=== PATIENT | male | born 1935 | race Caucasian/White ===

== ENCOUNTER 2016-06-21 22:33 | Inpatient (IN) | payer MEDICARE ==
[~2016-06-21] VITALS: Ht 180.3 cm; Wt 91.8 kg
[~2016-06-21 22:33] MED LIST: ASAC800T PO; ASPI1TAB69 PO; BECL80AE NASAL; CALC600T10 PO; FOLI1CAP7 PO; LOSA50TA PO; MEDR4TAB PO; MULTTAB67 PO; PROT40TA PO; SYMB80AE INH
[2016-06-21 22:44] VITALS: BP 177/75; PULSE 116; RESP 22; TEMP 101; O2SAT 87
[2016-06-21] MEDS ORDERED: VANCOMYCIN INJ 1,000 MG in SODIUM CHLOR 0.9% 250 ML INJ 250 ML IV ONE (23:00)
[2016-06-21] MEDS ORDERED: RESP: ALBUTEROL 2.5 MG/IPRATROPIUM 0.5 MG NEB (SCH) INH ONE (23:00)
[2016-06-21] MEDS ORDERED: SODIUM CHLOR 0.9% 1000 ML INJ 1,000 ML IV ONE (23:00)
[2016-06-21] MEDS ORDERED: AZTREONAM INJ 1,000 MG in SODIUM CHLORIDE 0.9% INJ 100 ML IV ONE (23:00)
[2016-06-21 23:03] VITALS: O2SAT 92
--- NOTE | 2016-06-21 23:03 | PD ---
HPI Chief Complaint: General Weakness Time Seen by Provider: 22:53 Travel History International Travel<30 days: No Contact w/Intl Traveler<30days: No Traveled to known affect area: No History of Present Illness HPI 81-year-old male complains generalized malaise and weakness and nausea vomiting. Patient states that the symptoms started this morning. Patient was seen by personal physician this morning and found to have elevated blood sugar. Patient denies any history of diabetes. Patient has history of COPD and hypertension. EMS was called to the scene. Patient's O2 saturation was found to be 87% at room air. Patient was given O2 4 L make an cannula. Patient was given IV fluid [address] to the ED. Temperature was 101 at the scene. Patient complains of urinary incontinence. Patient denies any headache. Patient denies any visual change. Patient denies any neck pain. Patient denies any chest pain or shortness of breath. Patient denies abdominal pain. Patient states that he started having nausea vomiting this evening. Patient denies any focal weakness or numbness of extremity. PFSH Past Medical History Cancer: No Cardiovascular Problems: No Diabetes: No Endocrine: No Gastrointestinal Disorders: Yes (GERD) Genitourinary: No Hepatitis: No Hiatal Hernia: Yes Hypertension: Yes Immune Disorder: No Medical other: No Musculoskeletal: Yes (ARTHRITIS) Neurologic: No Psychiatric: No Respiratory: No Thyroid Disease: No Influenza Vaccination: Yes Past Surgical History Abdominal Surgery: Yes (LEFT ING. HERNIA REP.) AICD: No Body Medical Devices: WIRE RIGHT KNEE Eye Surgery: Yes (STRABISMUS REP., LEFT CATARACT EXTRACT.) Genitourinary Surgery: Yes (TURP) Joint Replacement: No Oral Surgery: Yes (TONSILLECTOMY) Pacemaker: No Other Surgery: Yes Social History Alcohol Use: Yes (OCCA.) Tobacco Use: No Substance Use: No Allergies-Medications (Allergen,Severity, Reaction): Coded Allergies: Augmentin (Verified Allergy, Severe, Diarrhea, 06/21/16) Reported Meds & Prescriptions Reported Meds & Active Scripts Active Reported Calcium + D3 (Calcium Carbonate-Cholecalciferol) 600-200 Mg-Unit Tab 1 Tab PO DAILY Multiple Vitamin 1 Tab 1 Tab PO DAILY Asacol HD (Mesalamine) 800 Mg Tab 800 Mg PO TID Swallow whole. Take on an empty stomach. Losartan (Losartan Potassium) 50 Mg Tab 50 Mg PO DAILY Aspirin 81 Mg Tabdr 81 Mg PO DAILY Medrol (Methylprednisolone) 4 Mg Tab 4 Mg PO MON, SUN, SUN Protonix (Pantoprazole Sodium) 40 Mg Tab 40 Mg PO DAILY Symbicort Inh (Budesonide/Formoterol Fumarate) 80-4.5 Mcg/Act Aero 2 Puff INH DAILY Qnasl Nasal (Beclomethasone Nasal) 80 Mcg/Act Aero 2 [place] NASAL DAILY To each nostril. Folic Acid 800 Mcg Cap 800 Mcg PO DAILY Review of Systems General / Constitutional: No: Fever Eyes: No: Visual changes HENT: No: Headaches Cardiovascular: No: Chest Pain or Discomfort Respiratory: Positive: Shortness of Breath Gastrointestinal: Positive: Nausea, Vomiting, No: Abdominal Pain Genitourinary: No: Dysuria Musculoskeletal: No: Pain Skin: No Rash Neurologic: No: Weakness Psychiatric: No: Depression Endocrine: No: Polydipsia Hematologic/Lymphatic: No: Easy Bruising Physical Exam Narrative GENERAL: Well-nourished, well-developed patient. SKIN: Focused skin assessment warm/dry. HEAD: Normocephalic. EYES: No scleral icterus. No injection or drainage. NECK: Supple, trachea midline. No JVD or lymphadenopathy. CARDIOVASCULAR: Regular rate and rhythm without murmurs, gallops, or rubs. RESPIRATORY: Breath sounds equal bilaterally. No accessory muscle use. GASTROINTESTINAL: Abdomen soft, non-tender, nondistended. MUSCULOSKELETAL: No cyanosis, or edema. BACK: Nontender without obvious deformity. No CVA tenderness. Neurologic exam: Patient is awake and alert oriented 3. No obvious focal neurological deficit. Data Data Last Documented VS Vital Signs Date Time Temp Pulse Resp B/P Pulse Ox O2 Delivery O2 Flow Rate FiO2 06/21/16 23:39 93 Nasal Cannula 5.00 06/21/16 22:44 101.0 116 22 177/75 Orders Lactic Acid Sepsis Protocol (06/21/16 22:49) Complete Blood Count With Diff (06/21/16 22:54) Comprehensive Metabolic Panel (06/21/16 22:54) Creatine Kinase (Cpk) (06/21/16 22:54) Troponin I (06/21/16 22:54) B-Type Natriuretic Peptide (06/21/16 22:54) Prothrombin Time / Inr (Pt) (06/21/16 22:54) Act Partial Throm Time (Ptt) (06/21/16 22:54) Blood Culture (06/21/16 22:54) Urinalysis - C+S If Indicated (06/21/16 22:54) D-Dimer (06/21/16 22:54) Thyroid Stimulating Hormone (06/21/16 22:54) Chest, Single Ap (06/21/16 22:54) Iv Access Insert/Monitor (06/21/16 22:54) Ecg Monitoring (06/21/16 22:54) Oximetry (06/21/16 22:54) Sodium Chlor 0.9% 1000 Ml Inj (Ns 1000 M (06/21/16 23:00) Aztreonam Inj (Azactam Inj) (06/21/16 23:00) Vancomycin Inj (Vancomycin Inj) (06/21/16 23:00) Albuterol-Ipratropium Neb (Duoneb Neb) (06/21/16 23:00) Arterial Blood Gas (Abg) (06/21/16 ) Influenzae A/B Antigen (06/21/16 23:04) Labs Laboratory Tests Test 06/21/16 06/21/16 06/21/16 22:48 23:00 23:46 Lactic Acid Level 2.1 mmol/L White Blood Count 22.7 TH/MM3 Red Blood Count 4.70 MIL/MM3 Hemoglobin 13.8 GM/DL Hematocrit 41.7 % Mean Corpuscular Volume 88.8 FL Mean Corpuscular Hemoglobin 29.4 PG Mean Corpuscular Hemoglobin 33.1 % Concent Red Cell Distribution Width 14.2 % Platelet Count 228 TH/MM3 Mean Platelet Volume 7.5 FL Neutrophils (%) (Auto) 93.3 % Lymphocytes (%) (Auto) 3.8 % Monocytes (%) (Auto) 2.6 % Eosinophils (%) (Auto) 0.0 % Basophils (%) (Auto) 0.3 % Neutrophils # (Auto) 21.1 TH/MM3 Lymphocytes # (Auto) 0.9 TH/MM3 Monocytes # (Auto) 0.6 TH/MM3 Eosinophils # (Auto) 0.0 TH/MM3 Basophils # (Auto) 0.1 TH/MM3 CBC Comment DIFF FINAL Differential Comment Prothrombin Time 12.9 SEC Prothromb Time International 1.2 RATIO Ratio Activated Partial 24.1 SEC Thromboplast Time D-Dimer Quantitative (PE/DVT) 1.50 MG/L FEU Urine Color LIGHT-YELLOW Urine Turbidity CLEAR Urine pH 6.0 Urine Specific [place] 1.011 Urine Protein NEG mg/dL Urine Glucose (UA) NEG mg/dL Urine Ketones 10 mg/dL Urine Occult Blood SMALL Urine Nitrite NEG Urine Bilirubin NEG Urine Urobilinogen LESS THAN 2.0 MG/DL Urine Leukocyte Esterase NEG Urine RBC 3 /hpf Urine WBC LESS THAN 1 /hpf Urine Squamous Epithelial <1 /hpf Cells Urine Mucus FEW /lpf Microscopic Urinalysis Comment CULT NOT INDICATED Sodium Level 137 MEQ/L Potassium Level 3.6 MEQ/L Chloride Level 105 MEQ/L Carbon Dioxide Level 20.9 MEQ/L Anion Gap 11 MEQ/L Blood Urea Nitrogen 13 MG/DL Creatinine 1.09 MG/DL Estimat Glomerular Filtration 65 ML/MIN Rate Random Glucose 152 MG/DL Calcium Level 7.9 MG/DL Total Bilirubin 0.7 MG/DL Aspartate Amino Transf 28 U/L (AST/SGOT) Alanine Aminotransferase 30 U/L (ALT/SGPT) Alkaline Phosphatase 144 U/L Total Creatine Kinase 119 U/L Troponin I LESS THAN 0.02 NG/ML B-Type Natriuretic Peptide 39 PG/ML Total Protein 7.0 GM/DL Albumin 3.1 GM/DL Thyroid Stimulating Hormone 0.737 uIU/ML 3rd Gen Blood Gas Puncture Site RT RADIAL Blood Gas Patient Temperature 98.6 Blood Gas HCO3 20 mmol/L Blood Gas Base Excess -3.7 mmol/L Blood Gas Oxygen Saturation 91 % Arterial Blood pH 7.45 Arterial Blood Partial 29 mmHg Pressure CO2 Arterial Blood Partial 67 mmHG Pressure O2 Arterial Blood Oxygen Content 18.1 Vol % Arterial Blood 1.1 % Carboxyhemoglobin Arterial Blood Methemoglobin 0.9 % Blood Gas Hemoglobin 14.2 G/DL Oxygen Delivery Device NASAL CANNULA Blood Gas Liter Flow 5 L/M MDM Medical Decision Making Medical Screen Exam Complete: Yes Emergency Medical Condition: Yes Interpretation(s) 23:03 PM. EKG shows sinus tachycardia rate 116. Nonspecific ST-T wave change. 23:45 PM. Last Impressions Chest X-Ray 06/21/16 1499 Signed Impressions: Service Date/Time: Tuesday, June 21, 2016 22:56 - CONCLUSION: A 4.3 cm density overlying the left hilum. Round pneumonia versus left hilar mass, possibly malignant. Contrasted chest CT recommended on an outpatient basis. Darron A. Sevigny, MD 23:46 PM. CBC WBC 22.7. 93 neutrophil. Bicarbonate 20.9. Lactic acid 2.1. Calcium 7.9. INR 1.2. D-dimer 1.5. UA negative. 12:03 AM. Cardiac enzymes are normal. ABG pH 7.45. PCO2 28. PO2 66. Patient 's on 4 L make an cannula. Differential Diagnosis Differential diagnosis including sepsis, dehydration, electrolyte imbalance, TIA , CVA, NE, pneumonia, UTI. Narrative Course 81-year-old male complains of generalized malaise and weakness with nausea vomiting. Patient is febrile. Patient was given normal saline solution 1500 cc by EMS. Normal since solution 1 L IV bolus in the ED. Albuterol with Atrovent unit dose treatment times one. Vancomycin 1 g IV. Azactam 1 g IV. Diagnosis Primary Impression: Pneumonia Qualified Code: J18.1 - Pneumonia of left upper lobe due to infectious organism Additional Impression: Hypoxemia Admitting Information Admitting Physician Requests: Admit Herber Juan MD Jun 21, 2016 23:03
[2016-06-21 23:17] LABS: AUTOMATED NEUTROPHIL # 21.1 TH/MM3 (1.8-7.7); BASOPHIL # 0.1 TH/MM3 (0-0.2); BASOPHIL % 0.3 % (0.0-2.0); HEMATOCRIT 41.7 % (39.0-51.0); HEMO FLAGS DIFF FINAL; LYMPH % 3.8 % (9.0-44.0); LYMPHOCYTE # 0.9 TH/MM3 (1.0-4.8); MEAN CELL VOLUME 88.8 FL (80.0-100.0); MEAN CORPUSCULAR HEMOGLOBIN 29.4 PG (27.0-34.0); MEAN CORPUSCULAR HGB CONC 33.1 % (32.0-36.0); MONO % 2.6 % (0.0-8.0); NEUT % 93.3 % (16.0-70.0); PLATELET COUNT 228 TH/MM3 (150-450); RED CELL DISTRIBUTION WIDTH 14.2 % (11.6-17.2); WHITE BLOOD COUNT 22.7 TH/MM3 (4.0-11.0)
--- NOTE | 2016-06-21 23:19 | RADRPT ---
EXAM DATE/TIME: 06/21/2016 22:56 [facility] COMPARISON: No previous studies available for comparison. INDICATIONS : Shortness of breath. Weakness. MEDICAL HISTORY : Hypertension. SURGICAL HISTORY : None. ENCOUNTER: Initial ACUITY: 1 day PAIN SCORE: 0/10 LOCATION: Bilateral chest FINDINGS: A single view of the chest demonstrates a 4.3 cm rounded density overlying the left hilum. Chest CT w ith contrast recommended as an outpatient basis. could be a left hilar mass or rounded pneumonia.. T he cardiomediastinal contours are unremarkable. Osseous structures are intact. CONCLUSION: A 4.3 cm density overlying the left hilum. Round pneumonia versus left hilar mass, possibly malignant . Contrasted chest CT recommended on an outpatient basis. Darron Gunter MD on June 21, 2016 at 23:15 Board Certified Radiologist. This report was verified electronically.
[2016-06-21 23:24] LABS: BLOOD, URINE SMALL (NEG); COMMENT (UR) CULT NOT INDICATED; CULTURE IF INDICATED CULT NOT INDICATED; GLUCOSE,URINE NEG (NEG); KETONE, URINE 10 mg/dL (NEG); MUCUS URINE FEW /lpf (OCC); NITRITE,URINE NEG (NEG); SQUAMOUS EPITHELIAL CELL URINE <1 /hpf (0-5); URINE COLOR LIGHT-YELLOW (YELLW/STRAW)
[2016-06-21 23:32] LABS: APTT (PATIENT) 24.1 SEC (24.3-30.1); INTERNATIONAL NORMALIZED RATIO 1.2 RATIO; PROTHROMBIN TIME - PATIENT 12.9 SEC (9.8-11.6)
[2016-06-21 23:37] LABS: ALT (GPT) 30 U/L (12-78); ANION GAP 11 MEQ/L (5-15); AST (GOT) 28 U/L (15-37); BICARBONATE 20.9 MEQ/L (21.0-32.0); BLOOD UREA NITROGEN 13 MG/DL (7-18); CHLORIDE 105 MEQ/L (98-107); GLOMERULAR FILTRATION RATE 65 ML/MIN (>89); POTASSIUM 3.6 MEQ/L (3.5-5.1); SODIUM (NA) 137 MEQ/L (136-145)
[2016-06-21 23:39] VITALS: O2SAT 93
[2016-06-21 23:47] LABS: ALKALINE PHOSPHATASE 144 U/L (45-117); CREATINE KINASE 119 U/L (39-308); TOTAL BILIRUBIN ADULT 0.7 MG/DL (0.2-1.0)
[2016-06-22] VITALS (17 sets, daily range): BP systolic 107–133; BP diastolic 57–75; PULSE 83–106; RESP 20–28; TEMP 97.8–98.8; O2SAT 85–95
[2016-06-22 00:04] LABS: BLOOD GAS BASE EXCESS -3.7 mmol/L (-2-2); BLOOD GAS CARBOXYHEMOGLOBIN 1.1 % (0-4); BLOOD GAS HCO3 20 mmol/L (22-26); BLOOD GAS METHEMOGLOBIN 0.9 % (0-2); BLOOD GAS O2 HGB SATURATION 91 % (90-100); BLOOD GAS OXYGEN CONTENT 18.1 Vol % (12.0-20.0); BLOOD GAS PCO2 29 mmHg (38-42); BLOOD GAS PO2 67 mmHG (61-120); BLOOD GAS TOTAL HGB 14.2 G/DL (12.0-16.0); CRITICAL VALUE NO; LITER FLOW 5 L/M; OXYGEN DEVICE NASAL CANNULA; TEMP CORR TO 98.6
[2016-06-22 00:05] LABS: DRAW SITE RT RADIAL; NUMBER OF ARTERIAL PUNCTURES 1; STAT YES; ULNAR PULSE PRESENT
[2016-06-22] MEDS ORDERED: ONDANSETRON HCL 4 MG/2 ML VIAL IV PRN (00:30)
[2016-06-22] MEDS ORDERED: ACETAMINOPHEN 325 MG TAB PO PRN ×2 (00:30→04:00)
[2016-06-22] MEDS ORDERED: SODIUM CHLORIDE 0.9% FLUSH 10 ML FLUSH IVF PRN (00:30)
[2016-06-22 00:52] LABS: LACTIC ACID GHOST NOT REPORTABLE
[2016-06-22] MEDS ORDERED: KETOROLAC TROMETHAMINE 30 MG/ML (IVP) VIAL IV PUSH ONE (01:00)
[2016-06-22] MEDS ORDERED: IOHEXOL 350 MG/ML 10 ML VIAL (for RAD DIAG) IV ONE (01:44)
--- NOTE | 2016-06-22 02:02 | RADRPT ---
EXAM DATE/TIME: 06/22/2016 01:33 [facility] COMPARISON: No previous studies available for comparison. INDICATIONS : Left side chest pain and shortness of breath. Elevated D-Dimer. IV CONTRAST: 70 cc Omnipaque 350 (iohexol) IV RADIATION DOSE: 23.50 CTDIvol (mGy) MEDICAL HISTORY : Hypertension. Chronic obstructive pulmonary disease. Hernia, hiatal.Colitis. SURGICAL HISTORY : Tonsillectomy. Inguinal hernia repair. ENCOUNTER: Initial ACUITY: 1 day PAIN SCALE: 2/10 LOCATION: Bilateral chest TECHNIQUE: Volumetric scanning of the chest was performed using a pulmonary embolism protocol MIP images were re constructed. Using automated exposure control and adjustment of the mA and/or kV according to patien t size, radiation dose was kept as low as reasonably achievable to obtain optimal diagnostic quality images. FINDINGS: PULMONARY ARTERIES: No filling defects are seen in the pulmonary arteries through the segmental level. LUNGS: There is mild bibasilar atelectasis . There is no pneumothorax . No concerning pulmonary nodule is visualized. PLEURAE: There is no pleural thickening or pleural effusion. Extensive subpleural fatty deposition a sign of b enign disease MEDIASTINUM: There is good visualization of the great vessels of the middle mediastinum. No evidence of mediastin al or hilar adenopathy/mass. MUSCULOSKELETAL: Within normal limits for patient age. MISCELLANEOUS: The visualized upper abdominal organs demonstrate no acute abnormality. CONCLUSION: Normal examination except for extensive atelectasis both lung bases left greater than right. Darron Gunter MD on June 22, 2016 at 1:58 Board Certified Radiologist. This report was verified electronically.
[2016-06-22] MEDS ORDERED: Vancomycin Consult Pharmacy 1 EA OTHER SCH (04:00)
[2016-06-22] MEDS ORDERED: RESP: ALBUTEROL 2.5 MG/IPRATROPIUM 0.5 MG NEB (PRN) NEB (04:00)
[2016-06-22] MEDS ORDERED: BISACODYL 10 MG SUPP RECTAL PRN (04:00)
[2016-06-22] MEDS: AZITHROMYCIN INJ 500 MG in SODIUM CHLOR 0.9% 250 ML INJ 250 ML IV SCH (05:31)
[2016-06-22] MEDS: ACETAMINOPHEN 325 MG TAB PO PRN ×3 (05:31→23:58)
--- NOTE | 2016-06-22 08:34 | HHI.HP ---
HPI Service [facility] Primary Care Physician Jacques Loredo MD Admission Diagnosis pneumonia. Hypoxemia. Diagnoses: Chief Complaint: weakness, chills (Mirela Valencia) Travel History International Travel<30 Days: No Contact w/Intl Traveler <30 Da: No Traveled to Known Affected Are: No (Mirela Valencia) History of Present Illness This is an 81-year-old male with PMHx of COPD, RA, ulcerative colitis, recurrent sinusitis, HTN. Presented to ED with complains generalized malaise and weakness, and nausea vomiting. Patient states that the symptoms started yesterday morning, sudden. Patient was seen by personal physician this morning and found to have elevated blood sugar. Patient denies any history of diabetes but states he is borderline. EMS was called to the scene. Patient's O2 saturation was found to be 87% at room air. Patient was given O2 4 L via NC. Doesn't use oxygen at home. On CPAP for sleep apnea. Was found with fever 101, EMS gave 1500 cc IVF. No cough, no sputum, no cp, no sob. States he has chronic nasal congestion. No urinary symptoms, no diarrhea. Was evaluated in the ED, labs were done. Was febrile 101, tachycardic HR 116, BP 177/75. Sats 87 on RA. CBC remarkable for leukocytosis, WBC 22.7. Pt on chronic steroids for RA. Lactic acid 2.1. BMP remarkable for elevated blood glucose 152. CXR showed poss. PNA. CTA negative for PE. Antibiotics were started after cultures were obtained. Influenza negative. Overnight, he was put on BIPAP. Currently sitting up eating breakfast, doesn't appear in any distress. Sats 89% on oxygen at 5L/ NC. Has hx of COPD, not on oxygen at home. Follows up as OP with Dr. Singh. Pt. admitted for further evaluation and treatment. (Mirela Valencia) Review of Systems Constitutional: DENIES: Diaphoretic episodes, Fatigue, Fever, Weight gain, Weight loss, Chills, Dizziness, Change in appetite, Night Sweats Endocrine: DENIES: Heat/cold intolerance, Polydipsia, Polyuria, Polyphagia Eyes: DENIES: Blurred vision, Diplopia, Eye inflammation, Eye pain, Vision loss , Photosensitivity, Double Vision Ears, nose, mouth, throat: DENIES: Tinnitus, Hearing loss, Vertigo, Nasal discharge, Oral lesions, Throat pain, Hoarseness, Ear Pain, Running Nose, Epistaxis, Sinus Pain, Toothache, Odynophagia Respiratory: COMPLAINS OF: Cough, Wheezing, DENIES: Apneas, Snoring, Hemoptysis, Sputum production, Shortness of breath Cardiovascular: DENIES: Chest pain, Palpitations, Syncope, Dyspnea on Exertion , PND, Lower Extremity Edema, Orthopnea, Claudication Gastrointestinal: COMPLAINS OF: Nausea, Vomiting, DENIES: Abdominal pain, Black stools, Bloody stools, Constipation, Diarrhea, Difficulty Swallowing, Anorexia Genitourinary: DENIES: Sexual dysfunction, Urinary frequency, Urinary incontinence, Urgency, Hematuria, Dysuria, Nocturia, Penile Discharge, Testicular Pain, Testicular Swelling Musculoskeletal: COMPLAINS OF: Joint pain, DENIES: Muscle aches, Stiffness, Joint Swelling, Back pain, Neck pain Integumentary: DENIES: Abnormal pigmentation, Nail changes, Pruritus, Rash Hematologic/lymphatic: DENIES: Bruising, Lymphadenopathy Immunologic/allergic: DENIES: Eczema, Urticaria Neurologic: DENIES: Abnormal gait, Headache, Localized weakness, Paresthesias, Seizures, Speech Problems, Tremor, Poor Balance Psychiatric: DENIES: Anxiety, Confusion, Mood changes, Depression, Hallucinations, Agitation, Suicidal Ideation, Homicidal Ideation, Delusions ( Mirela Valencia) Past Family Social History Past Medical History HTN RA Ulcerative colitis Sleep apnea uses CPAP at home Recurrent sinusitis COPD GERD Cataracts Enlarged prostrate Past Surgical History Cataract surgery left eye Tonsillectomy TURP Left inguinal hernia repair Skin cancer removal Reported Medications Reported Meds & Active Scripts Active Reported Folic Acid 800 Mcg Cap 800 Mcg PO DAILY Calcium + D3 (Calcium Carbonate-Cholecalciferol) 600-200 Mg-Unit Tab 1 Tab PO DAILY Multiple Vitamin 1 Tab 1 Tab PO DAILY Asacol HD (Mesalamine) 800 Mg Tab 800 Mg PO TID Swallow whole. Take on an empty stomach. Losartan (Losartan Potassium) 50 Mg Tab 50 Mg PO DAILY Aspirin 81 Mg Tabdr 81 Mg PO DAILY Medrol (Methylprednisolone) 4 Mg Tab 4 Mg PO MON, WED, FRI Protonix (Pantoprazole Sodium) 40 Mg Tab 40 Mg PO DAILY Symbicort Inh (Budesonide/Formoterol Fumarate) 80-4.5 Mcg/Act Aero 2 Puff INH DAILY Qnasl Nasal (Beclomethasone Nasal) 80 Mcg/Act Aero 2 Harrison NASAL DAILY To each nostril. (Mirela Valencia) Allergies: Coded Allergies: Augmentin (Verified Allergy, Severe, Diarrhea, 06/21/16) Active Ordered Medications Inpatient Medications Acetaminophen (Tylenol) 650 mg Q4H PRN PO TEMP > 100.4; Start 06/22/16 at 04:00 Acetaminophen 650 mg 650 mg Q6H PRN PO PAIN SCALE 1 TO 2 Last administered on 05:31; Start 06/22/16 at 04:00 Albuterol/ Ipratropium (Duoneb Neb) 1 ampule Q2HR NEB PRN NEB SHORTNESS OF BREATH; Start 06/22/16 at 04:00 Aspirin (Ecotrin Ec) 81 mg DAILY PO ; Start 06/22/16 at 09:00 Azithromycin/ Sodium Chloride (Zithromax Inj/ NS 250 ml Inj) 250 ml @ 250 mls/ hr Q24H IV Last administered on 06/22/16 05:31; Start 06/22/16 at 05:00 Aztreonam 1000 mg/ Sodium Chloride 100 ml @ 200 mls/hr ONCE ONCE IV Last administered on 06/22/16 00:40; Start 06/21/16 at 23:00; Stop 06/21/16 at 23:29 ; Status DC Aztreonam 2000 mg/ Sodium Chloride 100 ml @ 200 mls/hr Q8H IV ; Start 06/22/16 at 08:00 Bisacodyl (Dulcolax Supp) 10 mg DAILY PRN RECTAL CONSTIPATION; Start 06/22/16 at 04:00 Budesonide/ Formoterol Fumarate (Symbicort 80-4.5 Mcg Inh) 2 puff DAILY INH ; Start 06/22/16 at 09:00 Calcium/Vitamin D (Oscal-D 250-125) 500 mg DAILY PO ; Start 06/22/16 at 09:00 Folic Acid (Folate) 1 mg DAILY PO ; Start 06/22/16 at 09:00 Heparin Sodium (Porcine) (Heparin Inj) 5,000 units Q12HR SQ ; Start 06/22/16 at 09:00 Ketorolac Tromethamine (Toradol Inj) 30 mg ONCE ONCE IV PUSH Last administered on 06/22/16 01:11; Start 06/22/16 at 01:00; Stop 06/22/16 at 01:01 ; Status DC Mesalamine (Asacol Hd Dr) 800 mg TID PO ; Start 06/22/16 at 09:00 Ondansetron HCl (Zofran Inj) 4 mg Q6H PRN IV NAUSEA OR VOMITING; Start at 00:30 Pharmacy Profile Note 0 ml @ 0 mls/hr UNSCH OTHER ; Start 06/22/16 at 04:00 Sennosides (Senokot) 17.2 mg Q12H PRN PO CONSTIPATION; Start 06/22/16 at 04:00 Sodium Chloride (NS Flush) 2 ml UNSCH PRN IVF FLUSH AFTER USING IV ACCESS; Start 06/22/16 at 00:30 Vancomycin HCl/ Sodium Chloride (Vancomycin Inj/ NS 250 ml Inj) 250 ml @ 250 mls/hr ONCE ONCE IV Last administered on 06/21/16 23:13; Start 06/21/16 at 23 :00; Stop 06/21/16 at 23:59; Status DC Family History DM and heart disease Social History , lives with . smoked in the past, quit 1985 Occ. ETOH no substance abuse (Mirela Valencia) Physical Exam Vital Signs Vital Signs Date Time Temp Pulse Resp B/P Pulse Ox O2 Delivery O2 Flow Rate FiO2 06/22/16 06:00 90 06/22/16 04:24 92 Nasal Cannula 5.00 06/22/16 04:00 92 06/22/16 04:00 98.8 92 25 107/61 95 06/22/16 04:00 92 Nasal Cannula 5.00 06/22/16 03:00 95 Bi-Pap 06/22/16 02:47 89 35 06/22/16 02:04 98.4 102 20 107/61 85 06/22/16 02:00 103 06/22/16 02:00 87 Nasal Cannula 5.00 06/22/16 00:00 106 22 133/61 94 Nasal Cannula 4 06/21/16 23:39 93 Nasal Cannula 5.00 06/21/16 23:03 92 Nasal Cannula 4 06/21/16 22:44 101.0 116 22 177/75 87 Physical Exam GENERAL: This is a well-nourished, well-developed patient, in no apparent distress. SKIN: No rashes, ecchymoses or lesions. Cool and dry. HEAD: Atraumatic. Normocephalic. No temporal or scalp tenderness. EYES: Pupils equal round and reactive. Extraocular motions intact. No scleral icterus. Post. pharynx with thrush. No injection or drainage. ENT: Nose without bleeding, purulent drainage or septal hematoma. Throat without erythema, tonsillar hypertrophy or exudate. Uvula midline. Airway patent. NECK: Trachea midline. No JVD or lymphadenopathy. Supple, nontender, no meningeal signs. CARDIOVASCULAR: Regular rate and rhythm without murmurs, gallops, or rubs. RESPIRATORY: Diminished, exp. wheezes GASTROINTESTINAL: Abdomen soft, non-tender, nondistended. No hepato-splenomegaly , or palpable masses. No guarding. MUSCULOSKELETAL: Extremities without clubbing, cyanosis, or edema. No joint tenderness, effusion, or edema noted. No calf tenderness. Negative Homans sign bilaterally. NEUROLOGICAL: Awake and alert. Cranial nerves II through XII intact. Motor and sensory grossly within normal limits. Five out of 5 muscle strength in all muscle groups. Normal speech. Laboratory Laboratory Tests Test 06/21/16 06/21/16 06/21/16 06/22/16 22:48 23:00 23:46 02:06 Lactic Acid Level 2.1 White Blood Count 22.7 Red Blood Count 4.70 Hemoglobin 13.8 Hematocrit 41.7 Mean Corpuscular Volume 88.8 Mean Corpuscular Hemoglobin 29.4 Mean Corpuscular Hemoglobin 33.1 Concent Red Cell Distribution Width 14.2 Platelet Count 228 Mean Platelet Volume 7.5 Neutrophils (%) (Auto) 93.3 Lymphocytes (%) (Auto) 3.8 Monocytes (%) (Auto) 2.6 Eosinophils (%) (Auto) 0.0 Basophils (%) (Auto) 0.3 Neutrophils # (Auto) 21.1 Lymphocytes # (Auto) 0.9 Monocytes # (Auto) 0.6 Eosinophils # (Auto) 0.0 Basophils # (Auto) 0.1 CBC Comment DIFF FINAL Differential Comment Prothrombin Time 12.9 Prothromb Time International 1.2 Ratio Activated Partial 24.1 Thromboplast Time D-Dimer Quantitative (PE/DVT) 1.50 Urine Color LIGHT-YELLOW Urine Turbidity CLEAR Urine pH 6.0 Urine Specific Ceres 1.011 Urine Protein NEG Urine Glucose (UA) NEG Urine Ketones 10 Urine Occult Blood SMALL Urine Nitrite NEG Urine Bilirubin NEG Urine Urobilinogen LESS THAN 2.0 Urine Leukocyte Esterase NEG Urine RBC 3 Urine WBC LESS THAN 1 Urine Squamous Epithelial <1 Cells Urine Mucus FEW Microscopic Urinalysis Comment CULT NOT INDICATED Sodium Level 137 Potassium Level 3.6 Chloride Level 105 Carbon Dioxide Level 20.9 Anion Gap 11 Blood Urea Nitrogen 13 Creatinine 1.09 Estimat Glomerular Filtration 65 Rate Random Glucose 152 Calcium Level 7.9 Total Bilirubin 0.7 Aspartate Amino Transf 28 (AST/SGOT) Alanine Aminotransferase 30 (ALT/SGPT) Alkaline Phosphatase 144 Total Creatine Kinase 119 Troponin I LESS THAN 0.02 B-Type Natriuretic Peptide 39 Total Protein 7.0 Albumin 3.1 Thyroid Stimulating Hormone 0.737 3rd Gen Blood Gas Puncture Site RT RADIAL Blood Gas Patient Temperature 98.6 Blood Gas HCO3 20 Blood Gas Base Excess -3.7 Blood Gas Oxygen Saturation 91 Arterial Blood pH 7.45 Arterial Blood Partial 29 Pressure CO2 Arterial Blood Partial 67 Pressure O2 Arterial Blood Oxygen Content 18.1 Arterial Blood 1.1 Carboxyhemoglobin Arterial Blood Methemoglobin 0.9 Blood Gas Hemoglobin 14.2 Oxygen Delivery Device NASAL CANNULA Blood Gas Liter Flow 5 Nasal Screen MRSA (PCR) NEGATIVE Test 06/22/16 02:42 Lactic Acid Level 1.5 Date/Time Procedure Status Source Growth 06/22/16 00:06 Influenza Types A,B Antigen (CUAUHTEMOC) - Final Complete Nasal Washing NEGATIVE FOR FLU A AND B ANTIGEN.... 06/21/16 23:00 Aerobic Blood Culture Received Blood Peripheral Pending 06/21/16 23:00 Anaerobic Blood Culture Received Blood Peripheral Pending (Mirela ValenciaP) Result Diagram: 06/21/16 2300 06/21/16 [address] Angiography 06/22/16 0050 Signed Impressions: Service Date/Time: June 01:33 - CONCLUSION: Normal examination except for extensive atelectasis both lung bases left greater than right. Darron Gunter MD Chest X-Ray 06/21/16 2851 Signed Impressions: Service Date/Time: Tuesday, June 21, 2016 22:56 - CONCLUSION: A 4.3 cm density overlying the left hilum. Round pneumonia versus left hilar mass, possibly malignant. Contrasted chest CT recommended on an outpatient basis. Darron Gunter MD (Mirela Valencia) Septic Shock Reassessment Heart: Regular rate and rhythm Lungs: Diminished Skin: Warm, Dry Peripheral Pulses: Bounding Right Radial Bounding Left Radial Bounding Right Popliteal Bounding Left Popliteal Bounding Right Dorsalis Pedis Bounding Left Dorsalis Pedis Bounding Right Posterior Tibial Bounding Left Posterior Tibial Capillary Refill: <2 seconds (Mirela Valencia) Assessment and Plan Problem List: (1) Sepsis (2) Pneumonia (3) Hypoxemia (4) Hx of ulcerative colitis (5) Leukocytosis (6) Sleep apnea (7) COPD (chronic obstructive pulmonary disease) (8) Elevated random blood glucose level (9) Current chronic use of systemic steroids Assessment and Plan Admit to Dr. Coe 81 year old male admitted with weakness, N/V, found with hypoxia, lactic acidosis, febrile. CXR with PNA JANEE Sepsis, lactic acidosis, PNA. -continue IVF, lactic acid now normal -continue empiric antibiotics, follow cultures -follow CBC, note with leukocytosis, poss. sec. steroid use. COPD, hypoxia Sleep apnea -Continue with BIPAP at HS and Oxygen per NC to keep sats >90% -Start Solumedrol 40 mg IV BID -Duonebs -Pulmonary consultation Elevated blood glucose, on chronic steroids Hx borderline DM -HgbA1C in am -Accuchecks AC/HS with ISS Thrush -Nystatin 5 ml S/S PO QID Hx RA on steroids, stable -on IV steroids for now Hx Ulcerative colitis, stable -continue Asacol Home medications reviewed, initiated as indicated. Heparin for DVT prophylaxis PPI for GI prophylaxis. Plan of care discussed with pt, attending, and RN. Further management of the patient will be dependent on the hospital course. This patient was seen by myself and Dr. Coe, this H/P is written on his behalf. 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 hitchcock Patient feels much better Continue antibiotics Supplemental oxygen Discussed with patient, he wants to go home Discussed with [facility] level provider The exam, history, and the medical decision-making described in the above note were completed with the assistance of the mid-level provider. I reviewed the findings presented. I attest that I had a [id number] encounter with the patient on the same day, and personally performed and documented my assessment and findings in the medical record. (Cassia Coe MD) Physician Certification 2 Midnight Certification Type: Admission for Inpatient Services Order for Inpatient Services The services are ordered in accordance with Medicare regulations or non- Medicare payer requirements, as applicable. In the case of services not specified as inpatient-only, they are appropriately provided as inpatient services in accordance with the 2-midnight benchmark. Estimated LOS (days): 2 2 days is the estimated time the patient will need to remain in the hospital, assuming treatment plan goals are met and no additional complications. Post-Hospital Plan: Not yet determined (Mirela Valencia) Problem Qualifiers (1) Sepsis: Qualified Code: A41.9 - Sepsis, due to unspecified organism (2) Pneumonia: Qualified Code: J18.1 - Pneumonia of left upper lobe due to infectious organism (3) Leukocytosis: Qualified Code: D72.829 - Leukocytosis, unspecified type (4) COPD (chronic obstructive pulmonary disease): Qualified Code: J44.1 - Chronic obstructive pulmonary disease with acute exacerbation Mirela Valencia Jun 22, 2016 08:34 Cassia Coe MD Jun 22, 2016 18:41
[2016-06-22] MEDS: ASPIRIN EC 81 MG TABEC PO SCH (08:49)
[2016-06-22] MEDS: HEPARIN SODIUM - SQ 10,000 UNITS/ML VIAL SQ SCH ×2 (08:49→20:14)
[2016-06-22] MEDS: CALCIUM/VITAMIN D 250 MG/125 U TAB PO SCH (08:50)
[2016-06-22] MEDS: AZTREONAM INJ 2,000 MG in SODIUM CHLORIDE 0.9% INJ 100 ML IV SCH ×3 (08:50→23:58)
[2016-06-22] MEDS: FOLIC ACID 1 MG TAB PO SCH (08:50)
[2016-06-22] MEDS: SODIUM CHLORIDE 0.9% FLUSH 10 ML FLUSH IV FLUSH SCH ×2 (08:51→20:13)
[2016-06-22] MEDS: MESALAMINE HD 800 MG DELAYED RELEASE TAB PO SCH ×3 (09:00→18:06)
[2016-06-22] MEDS: RESP: ALBUTEROL 2.5 MG/IPRATROPIUM 0.5 MG NEB (SCH) NEB ×3 (09:00→19:51)
[2016-06-22] MEDS ORDERED: GLUCAGON 1 MG/ML VIAL OTHER PRN (09:15)
[2016-06-22] MEDS ORDERED: DEXTROSE 50% IN WATER 50 ML VIAL(D50) IV PUSH PRN (09:15)
[2016-06-22] MEDS: NYSTATIN SUSP 500,000 U/5 ML CUP SWISH-SWAL SCH ×4 (10:23→20:14)
[2016-06-22] MEDS: methylPREDNISolone SOD SUCC 40 MG/1 ML VIAL IV PUSH SCH ×2 (10:23→20:14)
[2016-06-22] MEDS: INSULIN ASPART SUPPLEMENTAL SCALE SQ SCH ×3 (11:00→20:14)
[2016-06-22] MEDS: BUDESONIDE-FORMOTEROL 80/4.5 MCG INHALER INH SCH (12:11)
[2016-06-22] MEDS: VANCOMYCIN INJ 1,750 MG in SODIUM CHLORID 0.9% 500 ML INJ 500 ML IV SCH (12:11)
--- NOTE | 2016-06-22 13:23 | MB ---
cc: Dahiana PANTOJA DATE OF CONSULTATION 06/22/2016 REASON FOR CONSULTATION Mr. Paz is an 81-year-old white male with a known history of COPD, prior smoker, but quit smoking in the 80s who presented with fever, elevated white count and bibasilar infiltrates consistent with pneumonia. He was started on broad-spectrum IV antibiotics yesterday and is feeling much better today. Initial white count was 22,000. Cultures of his blood have been negative. He is not producing sputum. Influenza A and B nasal wash was negative. The patient has one prior episode of pneumonia years ago, but was not hospitalized. All of this came on rather suddenly with a little bit of cough, but no productive sputum just felt poorly and feverish. PAST MEDICAL HISTORY 1. Hypertension 2. Ulcerative colitis 3. Rheumatoid disease 4. Sleep apnea treated with C-PAP 5. A history of sinusitis. 6. Reflux disease 7. Cataracts 8. BPH 9. He has had a previous TURP. 10. Inguinal hernia repair 11. Tonsillectomy 12. A cataract removed ALLERGIES AUGMENTIN CURRENT MEDICATIONS Reviewed in the EMR. REVIEW OF SYSTEMS No frontal headache. No hemoptysis. No chest pain. Denies any recent reflux symptoms or abdominal discomfort. No diarrhea. No swelling in his legs. No significant cardiovascular history. PHYSICAL EXAMINATION Awake, alert, comfortable, afebrile, blood pressure 107/60, pulse 90, respirations 18, sat 90-92% on five liters. HEAD, EYES, EARS, NOSE, AND THROAT: Sclerae anicteric. Mucous membranes are moist. NECK: Neck veins are flat. No adenopathy in the neck or supraclavicular region. LUNGS: Basilar congestion without wheezes. CARDIAC: Regular rhythm. No harsh murmur. EXTREMITIES: No pitting edema. No calf tenderness or cyanosis. OTHER LABORATORY The pH is 7.45, pCO2 29 on a blood gas yesterday. BUN and creatinine are normal. Lactate mildly elevated 2.1. BNP was normal. MRSA screen on a nasal wash negative. CT angiogram, no evidence of pulmonary embolism, but bibasilar infiltrates left greater than right. DISCUSSION Mr. Paz has a history of COPD and presents with bibasilar pneumonia. No obvious reflux at present, although this would be a predisposing factor. He is on broad-spectrum antibiotics. He is feeling better, also receiving oxygen, nebulized aerosol treatments and methylprednisolone. Recommend continuing this therapy for the next 24-48 hours with a followup chest x-ray to monitor progress. Further diagnostic and/or therapeutic range will depend on his ongoing clinical course and response to therapy. R. MD KATHERINE Del Rio/MARLEEN /1:05 PM /1:17 PM
--- NOTE | 2016-06-22 13:49 | EKG ---
Date Performed: 06/21/2016 Time Performed: 22:44:31 PTAGE: 81 years EKG: SINUS TACHYCARDIA ABNORMAL RHYTHM ECG Compared to prior tracing no significant change PREVIOUS TRACING : 06/10/2013 14.07 DOCTOR: Flakito Bunch Interpretating Date/Time 06/22/2016 13:47:14
[2016-06-23] VITALS (12 sets, daily range): BP systolic 126–144; BP diastolic 65–78; PULSE 70–97; RESP 18–26; TEMP 97.3–97.9; O2SAT 89–94
[2016-06-23] MEDS: INSULIN ASPART SUPPLEMENTAL SCALE SQ SCH ×4 (05:26→20:24)
[2016-06-23] MEDS: AZITHROMYCIN INJ 500 MG in SODIUM CHLOR 0.9% 250 ML INJ 250 ML IV SCH (06:14)
[2016-06-23 06:50] LABS: AUTOMATED NEUTROPHIL # 20.3 TH/MM3 (1.8-7.7); BASOPHIL % 0.1 % (0.0-2.0); HEMO FLAGS DIFF FINAL; LYMPH % 5.3 % (9.0-44.0); LYMPHOCYTE # 1.2 TH/MM3 (1.0-4.8); MEAN CORPUSCULAR HEMOGLOBIN 29.9 PG (27.0-34.0); MEAN CORPUSCULAR HGB CONC 33.6 % (32.0-36.0); NEUT % 92.6 % (16.0-70.0); PLATELET COUNT 232 TH/MM3 (150-450); RED BLOOD COUNT 4.38 MIL/MM3 (4.50-5.90); RED CELL DISTRIBUTION WIDTH 14.5 % (11.6-17.2); WHITE BLOOD COUNT 21.9 TH/MM3 (4.0-11.0)
[2016-06-23 07:05] LABS: ANION GAP 9 MEQ/L (5-15); BICARBONATE 20.8 MEQ/L (21.0-32.0); BLOOD UREA NITROGEN 13 MG/DL (7-18); CHLORIDE 110 MEQ/L (98-107); GLOMERULAR FILTRATION RATE 90 ML/MIN (>89); POTASSIUM 3.9 MEQ/L (3.5-5.1); SODIUM (NA) 140 MEQ/L (136-145)
[2016-06-23] MEDS: RESP: ALBUTEROL 2.5 MG/IPRATROPIUM 0.5 MG NEB (SCH) NEB ×3 (07:25→20:00)
[2016-06-23] MEDS: ASPIRIN EC 81 MG TABEC PO SCH (09:03)
[2016-06-23] MEDS: FOLIC ACID 1 MG TAB PO SCH (09:04)
[2016-06-23] MEDS: MESALAMINE HD 800 MG DELAYED RELEASE TAB PO SCH ×3 (09:04→17:23)
[2016-06-23] MEDS: methylPREDNISolone SOD SUCC 40 MG/1 ML VIAL IV PUSH SCH (09:04)
[2016-06-23] MEDS: PANTOPRAZOLE SOD 40 MG DELAYED RELEASE TAB PO SCH (09:04)
[2016-06-23] MEDS: CALCIUM/VITAMIN D 250 MG/125 U TAB PO SCH (09:04)
[2016-06-23] MEDS: HEPARIN SODIUM - SQ 10,000 UNITS/ML VIAL SQ SCH ×2 (09:04→20:24)
[2016-06-23] MEDS: SODIUM CHLORIDE 0.9% FLUSH 10 ML FLUSH IV FLUSH SCH ×2 (09:05→20:24)
[2016-06-23] MEDS: NYSTATIN SUSP 500,000 U/5 ML CUP SWISH-SWAL SCH ×4 (09:05→20:24)
[2016-06-23] MEDS: AZTREONAM INJ 2,000 MG in SODIUM CHLORIDE 0.9% INJ 100 ML IV SCH ×3 (09:05→23:50)
[2016-06-23] MEDS: BUDESONIDE-FORMOTEROL 80/4.5 MCG INHALER INH SCH (09:05)
--- NOTE | 2016-06-23 10:15 | HHI.PR ---
Subjective Remarks no cp no sob minimal cough eating okay sats improved, 93% on 3L/NC, better laying flat up to 97% no abd. pain, no diarrhea no n/v no fever Objective Objective Results - Vital Signs Date Time Temp Pulse Resp B/P Pulse Ox O2 Delivery O2 Flow Rate FiO2 06/23/16 07:24 94 Nasal Cannula 3.00 06/23/16 07:00 92 Nasal Cannula 4.00 06/23/16 06:00 70 06/23/16 04:00 80 06/23/16 04:00 97.7 80 20 144/78 93 06/23/16 02:00 78 06/23/16 00:00 88 06/23/16 00:00 97.9 88 26 140/72 92 06/22/16 22:00 88 06/22/16 20:00 97.8 84 26 119/63 91 06/22/16 20:00 84 06/22/16 19:52 92 Nasal Cannula 4.00 06/22/16 19:00 91 Nasal Cannula 4.00 06/22/16 18:00 93 06/22/16 16:00 85 06/22/16 16:00 98.4 85 28 126/75 90 06/22/16 14:00 86 06/22/16 12:00 85 06/22/16 12:00 98.6 85 27 117/70 91 I/O 06/22/16 06/22/16 06/22/16 06/23/16 06/23/16 06/23/16 07:00 15:00 23:00 07:00 15:00 23:00 Intake Total 500 ml 1073 ml 240 ml 130 ml Output Total 300 ml 700 ml 1425 ml 575 ml Balance 200 ml 373 ml -1185 ml -445 ml Intake Oral 250 ml 480 ml 240 ml 120 ml IV Total 250 ml 593 ml 0 ml 10 ml Output Urine Total 300 ml 700 ml 1425 ml 575 ml # Bowel Movements 0 0 0 0 Result Diagram: 06/23/1652506/23/[address] Angiography 06/22/16 0050 Signed Impressions: Service Date/Time: June 01:33 - CONCLUSION: Normal examination except for extensive atelectasis both lung bases left greater than right. Darron Gunter MD Chest X-Ray 06/21/16 9996 Signed Impressions: Service Date/Time: Tuesday, June 21, 2016 22:56 - CONCLUSION: A 4.3 cm density overlying the left hilum. Round pneumonia versus left hilar mass, possibly malignant. Contrasted chest CT recommended on an outpatient basis. Darron Gunter MD Other Results Laboratory Tests Test 06/23/16 05:26 White Blood Count 21.9 Red Blood Count 4.38 Hemoglobin 13.1 Hematocrit 39.0 Mean Corpuscular Volume 89.0 Mean Corpuscular Hemoglobin 29.9 Mean Corpuscular Hemoglobin 33.6 Concent Red Cell Distribution Width 14.5 Platelet Count 232 Mean Platelet Volume 7.8 Neutrophils (%) (Auto) 92.6 Lymphocytes (%) (Auto) 5.3 Monocytes (%) (Auto) 2.0 Eosinophils (%) (Auto) 0.0 Basophils (%) (Auto) 0.1 Neutrophils # (Auto) 20.3 Lymphocytes # (Auto) 1.2 Monocytes # (Auto) 0.4 Eosinophils # (Auto) 0.0 Basophils # (Auto) 0.0 CBC Comment DIFF FINAL Differential Comment Sodium Level 140 Potassium Level 3.9 Chloride Level 110 Carbon Dioxide Level 20.8 Anion Gap 9 Blood Urea Nitrogen 13 Creatinine 0.82 Estimat Glomerular Filtration 90 Rate Random Glucose 151 Calcium Level 8.7 Date/Time Procedure Status Source Growth 06/22/16 00:06 Influenza Types A,B Antigen ([facility]) - Final Complete Nasal Washing NEGATIVE FOR FLU A AND B ANTIGEN.... 06/21/16 23:00 Aerobic Blood Culture - Preliminary Resulted Blood Peripheral NO GROWTH IN 1 DAY 06/21/16 23:00 Anaerobic Blood Culture - Preliminary Resulted Blood Peripheral NO GROWTH IN 1 DAY ROS General: Weakness, No: Fatigue HEENT: No: Sore Throat, Dysphagia Cardiac: No: Chest Pain, Edema, Palpitations Pulmonary: Cough, Wheezing, No: SOB, Other GI: No: Abdominal Pain, BM, Diarrhea, N/V /SUPERVISOR CELLARS: No: Dysuria, Urgency Neuro/MS: No: Lightheaded, Confusion Psych: No: Anxiety, Depression Skin: No: Itching, Rash Physical Exam Physical Exam GENERAL: This is a well-nourished, well-developed patient, in no apparent distress. SKIN: No rashes, ecchymoses or lesions. Cool and dry. HEAD: Atraumatic. Normocephalic. No temporal or scalp tenderness. EYES: Pupils equal round and reactive. Extraocular motions intact. No scleral icterus. Post. pharynx with thrush. No injection or drainage. ENT: Nose without bleeding, purulent drainage or septal hematoma. Throat without erythema, tonsillar hypertrophy or exudate. Uvula midline. Airway patent. NECK: Trachea midline. No JVD or lymphadenopathy. Supple, nontender, no meningeal signs. CARDIOVASCULAR: Regular rate and rhythm without murmurs, gallops, or rubs. RESPIRATORY: Diminished, exp. wheezes GASTROINTESTINAL: Abdomen soft, non-tender, nondistended. No hepato-splenomegaly , or palpable masses. No guarding. MUSCULOSKELETAL: Extremities without clubbing, cyanosis, or edema. No joint tenderness, effusion, or edema noted. No calf tenderness. Negative Homans sign bilaterally. NEUROLOGICAL: Awake and alert. Cranial nerves II through XII intact. Motor and sensory grossly within normal limits. Five out of 5 muscle strength in all muscle groups. Normal speech. Urinary Catheter: No Vascular Central Line Catheter: No A/P Diagnosis: (1) Sepsis (2) Pneumonia (3) Hypoxemia (4) Hx of ulcerative colitis (5) Leukocytosis (6) Sleep apnea (7) COPD (chronic obstructive pulmonary disease) (8) Elevated random blood glucose level (9) Current chronic use of systemic steroids Assessment and Plan 81 year old male admitted with weakness, N/V, found with hypoxia, lactic acidosis, febrile. CXR with PNA JANEE Sepsis, lactic acidosis, PNA. -continue IVF, lactic acid now normal -continue empiric antibiotics, follow cultures, negative so far -follow CBC, note with leukocytosis, poss. sec. steroid use. -WBC improving COPD, hypoxia. Improved, sats 93% on 3L/NC, may need oxygen at home Sleep apnea -Continue with BIPAP at HS and Oxygen per NC to keep sats >90% -change to PO steroids -Duonebs -Pulmonary input appreciated -Walk test in am Elevated blood glucose, on chronic steroids-improving Hx borderline DM -HgbA1C pending -Accuchecks AC/HS with ISS Thrush -Nystatin 5 ml S/S PO QID Hx RA on steroids, stable -on PO steroids Hx Ulcerative colitis, stable -continue Asacol Heparin for DVT prophylaxis PPI for GI prophylaxis. Improving, no fever, WBC trending down. May need oxygen at home Tx out of ICU CM consult dc planning, [facility], with oxygen D/W RN D/W Dr. Coe D/W pt. This patient was seen by myself and Dr. Coe, this note is written on his behalf. Problem Qualifiers (1) Sepsis: Qualified Code: A41.9 - Sepsis, due to unspecified organism (2) Pneumonia: Qualified Code: J18.1 - Pneumonia of left upper lobe due to infectious organism (3) Leukocytosis: Qualified Code: D72.829 - Leukocytosis, unspecified type (4) COPD (chronic obstructive pulmonary disease): Qualified Code: J44.1 - Chronic obstructive pulmonary disease with acute exacerbation Mirela Valencia Jun 23, 2016 10:15
[2016-06-23] MEDS: VANCOMYCIN INJ 1,750 MG in SODIUM CHLORID 0.9% 500 ML INJ 500 ML IV SCH (12:12)
[2016-06-23 15:11] LABS: HEMOGLOBIN A1a 1.3 %; HEMOGLOBIN LA1C 2.3 %
[2016-06-23] MEDS: SENNOSIDES 8.6 MG TAB PO PRN ×2 (17:25→17:40)
[2016-06-23] MEDS: predniSONE 20 MG TAB PO SCH (20:24)
[2016-06-24] VITALS (11 sets, daily range): BP systolic 136–168; BP diastolic 59–86; PULSE 67–83; RESP 18–21; TEMP 97.1–97.6; O2SAT 92–95
[2016-06-24] MEDS: AZITHROMYCIN INJ 500 MG in SODIUM CHLOR 0.9% 250 ML INJ 250 ML IV SCH (05:09)
[2016-06-24] MEDS: INSULIN ASPART SUPPLEMENTAL SCALE SQ SCH ×4 (06:18→20:49)
[2016-06-24 07:21] LABS: HEMATOCRIT 39.2 % (39.0-51.0); MEAN CELL VOLUME 88.7 FL (80.0-100.0); MEAN CORPUSCULAR HEMOGLOBIN 29.3 PG (27.0-34.0); PLATELET COUNT 258 TH/MM3 (150-450); RED BLOOD COUNT 4.42 MIL/MM3 (4.50-5.90); RED CELL DISTRIBUTION WIDTH 14.3 % (11.6-17.2); REVIEW FLAG FINAL; WHITE BLOOD COUNT 17.5 TH/MM3 (4.0-11.0)
[2016-06-24] MEDS: RESP: ALBUTEROL 2.5 MG/IPRATROPIUM 0.5 MG NEB (SCH) NEB ×4 (08:00→21:04)
[2016-06-24 08:12] LABS: BICARBONATE 21.2 MEQ/L (21.0-32.0); POTASSIUM 4.1 MEQ/L (3.5-5.1)
[2016-06-24] MEDS: ASPIRIN EC 81 MG TABEC PO SCH (08:37)
[2016-06-24] MEDS: predniSONE 20 MG TAB PO SCH ×2 (08:37→20:42)
[2016-06-24] MEDS: FOLIC ACID 1 MG TAB PO SCH (08:37)
[2016-06-24] MEDS: PANTOPRAZOLE SOD 40 MG DELAYED RELEASE TAB PO SCH (08:37)
[2016-06-24] MEDS: NYSTATIN SUSP 500,000 U/5 ML CUP SWISH-SWAL SCH ×4 (08:37→20:42)
[2016-06-24] MEDS: HEPARIN SODIUM - SQ 10,000 UNITS/ML VIAL SQ SCH ×2 (08:37→20:42)
[2016-06-24] MEDS: MESALAMINE HD 800 MG DELAYED RELEASE TAB PO SCH ×3 (08:37→16:49)
[2016-06-24] MEDS: CALCIUM/VITAMIN D 250 MG/125 U TAB PO SCH (08:37)
[2016-06-24] MEDS: AZTREONAM INJ 2,000 MG in SODIUM CHLORIDE 0.9% INJ 100 ML IV SCH ×2 (08:38→16:48)
[2016-06-24] MEDS: SODIUM CHLORIDE 0.9% FLUSH 10 ML FLUSH IV FLUSH SCH ×2 (08:38→20:43)
[2016-06-24] MEDS: BUDESONIDE-FORMOTEROL 80/4.5 MCG INHALER INH SCH (08:38)
--- NOTE | 2016-06-24 09:53 | HHI.PR ---
Subjective Remarks Awake alert, cheerful Exertional dyspnea, but none at rest Patient states he does feel better Leukocytosis resolving Afebrile Blood sugar 149, patient is on by mouth steroids (Mariah Davis) Objective Objective Results - Vital Signs Date Time Temp Pulse Resp B/P Pulse Ox O2 Delivery O2 Flow Rate FiO2 06/24/16 04:00 97.6 74 20 140/59 95 06/24/16 03:51 92 Nasal Cannula 5.00 06/24/16 00:00 97.6 80 20 155/81 92 06/23/16 20:00 Nasal Cannula 3.00 06/23/16 20:00 97.6 85 20 143/72 93 06/23/16 20:00 77 06/23/16 16:45 97.3 89 20 141/73 92 06/23/16 16:00 97 06/23/16 16:00 97.4 97 23 135/65 90 06/23/16 14:00 92 06/23/16 13:30 3.00 06/23/16 12:00 97.5 84 21 129/70 89 06/23/16 12:00 84 06/23/16 10:00 94 I/O 06/23/16 06/23/16 06/23/16 06/24/16 06/24/16 06/24/16 07:00 15:00 23:00 07:00 15:00 23:00 Intake Total 130 ml 1185 ml 240 ml 120 ml Output Total 575 ml 600 ml 250 ml 800 ml Balance -445 ml 585 ml -10 ml -680 ml Intake Oral 120 ml 240 ml 240 ml 120 ml IV Total 10 ml 945 ml Output Urine Total 575 ml 600 ml 250 ml 800 ml # Bowel Movements 0 0 (Mariah Davis) Result Diagram: 06/24/16 0629 06/24/1629 Other Results Last Impressions CT Angiography 06/22/16 0050 Signed Impressions: Service Date/Time: June 01:33 - CONCLUSION: Normal examination except for extensive atelectasis both lung bases left greater than right. Darron Gunter MD Chest X-Ray 06/21/16 2904 Signed Impressions: Service Date/Time: Tuesday, June 21, 2016 22:56 - CONCLUSION: A 4.3 cm density overlying the left hilum. Round pneumonia versus left hilar mass, possibly malignant. Contrasted chest CT recommended on an outpatient basis. Darron Gunter MD Medications and IVs Administered Medications Medications (Trade) Dose Ordered Sig/Edson Route PRN Reason Start Time Stop Time Status Last Admin Dose Admin Sodium Chloride (NS Flush) 2 ml BID IV FLUSH 06/22/16 09:00 06/24/16 08:38 Sennosides (Senokot) 17.2 mg Q12H PRN PO CONSTIPATION 06/22/16 04:00 06/23/16 17:40 Heparin Sodium (Porcine) (Heparin Inj) 5,000 units Q12HR SQ 06/22/16 09:00 06/24/16 08:37 Acetaminophen 650 mg 650 mg Q6H PRN PO PAIN SCALE 1 TO 2 06/22/16 04:00 06/22/16 23:58 Aztreonam 2000 mg/ Sodium Chloride 100 ml @ 200 mls/hr Q8H IV 06/22/16 08:00 06/24/16 08:38 Azithromycin/ Sodium Chloride (Zithromax Inj/ NS 250 ml Inj) 250 ml @ 250 mls/hr Q24H IV 06/22/16 05:00 06/24/16 05:09 Aspirin (Ecotrin Ec) 81 mg DAILY PO 06/22/16 09:00 06/24/16 08:37 Budesonide/ Formoterol Fumarate (Symbicort 80-4.5 Mcg Inh) 2 puff DAILY INH 06/22/16 09:00 06/24/16 08:38 Folic Acid (Folate) 1 mg DAILY PO 06/22/16 09:00 06/24/16 08:37 Mesalamine (Asacol Hd Dr) 800 mg TID PO 06/22/16 09:00 06/24/16 08:37 Calcium/Vitamin D (Oscal-D 250-125) 500 mg DAILY PO 06/22/16 09:00 06/24/16 08:37 Nystatin (Mycostatin Liq) 5 ml QID SWISH-SWAL 06/22/16 09:00 06/24/16 08:37 Pantoprazole Sodium 40 mg 40 mg DAILY PO 06/23/16 09:00 06/24/16 08:37 Vancomycin HCl/ Sodium Chloride (Vancomycin Inj/ NS 500 ml Inj) 517.5 ml @ 250 mls/hr Q24H IV 06/22/16 12:00 06/23/16 12:12 Prednisone (Deltasone) 20 mg BID PO 06/23/16 21:00 06/24/16 08:37 (Mariah Davis) ROS General: Fatigue (mild), Other (10 point ROS done positives noted) Pulmonary: SOB (exertional), Wheezing (mild) GI: Other (no BM yet) (Mariah Davis) Physical Exam Physical Exam PHYSICAL EXAMINATION GENERAL: This is a well-developed, well-nourished obese male who appears to be in no acute distress. He is alert and awake, HEAD: Normocephalic without any lesion or mass noted. Facial features appear symmetric. OROPHARYNGEAL: Oropharynx without erythema or edema. NECK: Supple. No nuchal rigidity or lymphadenopathy. Trachea midline without deviation. CARDIAC: Regular rhythm, regular rate, S1 and S2 are heard. Distant LUNGS: Mildly diminished to auscultation bilaterally. Mild expiratory wheeze, no rhonchi, exertional dyspnea, ABDOMEN: Soft, nontender, no organomegaly or masses. Bowel sounds are heard in all four quadrants. No rebound. No guarding. EXTREMITIES: No edema. Moves extremities with purpose NEUROLOGICAL: Patient mood and affect appropriate. No focal deficit SKIN:Warm and moist Objective Remarks I'm feeling much better with my breathing. I do did get short of breath when walking but it is improved (Mariah Davis) A/P Assessment and Plan Vital signs reviewed, stable ranges Labs reviewed, chest x-ray ordered today Constipation, MiraLAX ordered now and daily. No BM since admission, we will monitor needs Sepsis, lactic acidosis resolved PNA. -continue empiric antibiotics, follow cultures, negative so far Leukocytosis improving COPD, improving especially at rest, Pulmonary consult, appreciate input. Chest x-ray ordered today for comparison per pulmonary recommendation Obesity with Sleep apnea -Continue with BIPAP at HS and Oxygen per NC to keep sats >90% PO steroids , dual nebs Elevated blood glucose, on chronic steroids-improving Hx borderline DM -Accuchecks AC/HS with ISS Thrush -Nystatin 5 ml S/S PO QID Heparin for DVT prophylaxis PPI for GI prophylaxis. Eval for possible home O2 CM consult dc planning, HHC, with oxygen possible DC a.m. Discussed With: Family (patient), Other (Dr. 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 I reviewed the findings presented. I attest that I had a [id number] encounter with the patient on the same day, and personally performed and documented my assessment and findings in the medical record. (Cassia Coe MD) Mariah Davis Jun 24, 2016 09:53 Cassia Coe MD Jun 24, 2016 17:15
--- NOTE | 2016-06-24 11:16 | EC ---
Study Study Date:06/23/2016 STUDY CONCLUSIONS SUMMARY - Left ventricle: The cavity size was normal. Wall thickness was increased in a pattern of mild LVH. There was concentric hypertrophy. Systolic function was normal. The estimated ejection fraction was in the range of 55% to 60%. Although no diagnostic regional wall motion abnormality was identified, this possibility cannot be completely excluded on the basis of this study. - Right ventricle: The cavity size was mildly dilated. - Pulmonary arteries: PA peak pressure: 34mm Hg (S). If LV function is below 40, please consider prescribing an ACEI or ARB or document rationale for non-use. PROCEDURE DATA STUDY STATUS: Elective. Procedure: Transthoracic echocardiography. Image quality was good. Scanning was performed from the parasternal, apical, and subcostal acoustic windows. Study completion: The patient tolerated the procedure well. Transthoracic echocardiography. M-mode, complete 2D, complete spectral Doppler, and color Doppler. Patient status: Inpatient. CARDIAC ANATOMY LEFT VENTRICLE: The cavity size was normal. Wall thickness was increased in a pattern of mild LVH. There was concentric hypertrophy. Systolic function was normal. The estimated ejection fraction was in the range of 55% to 60%. Although no diagnostic regional wall motion abnormality was identified, this possibility cannot be completely excluded on the basis of this study. AORTIC VALVE: The valve appears to be grossly normal. Doppler: There was no stenosis. No significant regurgitation. MITRAL VALVE: The valve appears to be grossly normal. Doppler: There was no evidence for stenosis. Trace regurgitation. LEFT ATRIUM: The atrium was normal in size. RIGHT VENTRICLE: The cavity size was mildly dilated. PULMONIC VALVE: Not well visualized. Doppler: There was no evidence for stenosis. No significant regurgitation. TRICUSPID VALVE: The valve appears to be grossly normal. Doppler: There was no evidence for stenosis. Trace regurgitation. PERICARDIUM: There was no pericardial effusion. BASIC MEASUREMENTS ADULT NORMAL Left ventricle LV internal dimension, ED, chordal level, 47.8 mm 43-52 PLAX LV internal dimension, ES, chordal level, 35 mm 23-38 PLAX Fractional shortening, chordal level, PLAX *27 % >29 LV posterior wall thickness, ED 12.6 mm IVS/LVPW ratio, ED 1.06 <1.3 Ventricular septum Septal thickness, ED 13.3 mm Aortic valve Leaflet separation 22 mm 15-26 Right ventricle RV internal dimension, ED, PLAX 27 mm 19-38 BASIC MEASUREMENTS ADULT NORMAL Aortic valve Leaflet separation 22 mm 15-26 Aorta Root diameter, ED *43 mm 20-37 Left atrium Anterior-posterior dimension, ES 34 mm 19-40 LA/aortic root ratio 0.79 DOPPLER MEASUREMENTS ADULT NORMAL Main pulmonary artery Pressure, S *34 mm Hg =30 Tricuspid valve Regurgitant peak velocity 247 cm/s Peak RV-RA gradient, S 24 mm Hg Maximal regurgitant velocity 247 cm/s Systemic veins Estimated CVP 10 mm Hg Right ventricle RV pressure, S *34 mm Hg <30 LEGEND: Mean values are shown as u=mean value. Asterisk (*) [place] values outside specified normal range. Prepared and signed by Maikel Carroll [id number]
[2016-06-24] MEDS: POLYETHYLENE GLYCOL 17 GM PKG PO SCH (12:25)
[2016-06-24] MEDS: VANCOMYCIN INJ 1,750 MG in SODIUM CHLORID 0.9% 500 ML INJ 500 ML IV SCH (12:25)
--- NOTE | 2016-06-24 14:19 | RADRPT ---
EXAM DATE/TIME: 06/24/2016 12:55 [place] COMPARISON: CT PULMONARY ANGIOGRAM, June 22, 2016, 1:33. INDICATIONS : Shortness of breath MEDICAL HISTORY : Hypertension. SURGICAL HISTORY : None. ENCOUNTER: Subsequent ACUITY: 3 days PAIN SCORE: 0/10 LOCATION: Bilateral chest FINDINGS: The heart size is normal. There is patchy density identified in the left perihilar region and the ri ght infrahilar region. There is also some increased density at the left base. A significant effusio n is not clearly seen. CONCLUSION: Patchy areas of increased density seen bilaterally being more prominent on the left. These could rep resent focal areas of consolidation and pneumonia. River Villalobos MD on June 24, 2016 at 14:14 Board Certified Radiologist. This report was verified electronically.
[2016-06-25] VITALS (9 sets, daily range): BP systolic 139–169; BP diastolic 70–88; PULSE 67–92; RESP 18–20; TEMP 96.6–98.3; O2SAT 90–94
[2016-06-25] MEDS: AZTREONAM INJ 2,000 MG in SODIUM CHLORIDE 0.9% INJ 100 ML IV SCH ×3 (00:09→17:25)
[2016-06-25] MEDS: AZITHROMYCIN INJ 500 MG in SODIUM CHLOR 0.9% 250 ML INJ 250 ML IV SCH (04:42)
[2016-06-25] MEDS: INSULIN ASPART SUPPLEMENTAL SCALE SQ SCH ×4 (05:56→20:04)
[2016-06-25] MEDS: RESP: ALBUTEROL 2.5 MG/IPRATROPIUM 0.5 MG NEB (SCH) NEB ×4 (07:36→20:15)
[2016-06-25] MEDS: BUDESONIDE-FORMOTEROL 80/4.5 MCG INHALER INH SCH (08:23)
[2016-06-25] MEDS: MESALAMINE HD 800 MG DELAYED RELEASE TAB PO SCH ×3 (08:24→17:26)
[2016-06-25] MEDS: NYSTATIN SUSP 500,000 U/5 ML CUP SWISH-SWAL SCH ×4 (08:24→20:02)
[2016-06-25] MEDS: PANTOPRAZOLE SOD 40 MG DELAYED RELEASE TAB PO SCH (08:24)
[2016-06-25] MEDS: FOLIC ACID 1 MG TAB PO SCH (08:24)
[2016-06-25] MEDS: POLYETHYLENE GLYCOL 17 GM PKG PO SCH (08:24)
[2016-06-25] MEDS: predniSONE 20 MG TAB PO SCH ×2 (08:24→20:04)
[2016-06-25] MEDS: CALCIUM/VITAMIN D 250 MG/125 U TAB PO SCH (08:24)
[2016-06-25] MEDS: ASPIRIN EC 81 MG TABEC PO SCH (08:25)
[2016-06-25] MEDS: HEPARIN SODIUM - SQ 10,000 UNITS/ML VIAL SQ SCH ×2 (08:25→20:03)
[2016-06-25] MEDS: SODIUM CHLORIDE 0.9% FLUSH 10 ML FLUSH IV FLUSH SCH ×2 (08:25→20:06)
--- NOTE | 2016-06-25 10:09 | HHI.PR ---
Subjective Remarks Awake alert, cheerful No acute sob Patient states he does feel better Up in chair Afebrile Objective Objective Results - Vital Signs Date Time Temp Pulse Resp B/P Pulse Ox O2 Delivery O2 Flow Rate FiO2 06/25/16 08:00 97.8 86 18 169/82 92 06/25/16 07:37 94 Nasal Cannula 2.00 06/25/16 04:00 97.5 69 20 164/88 94 06/25/16 00:29 98.3 76 20 142/70 94 06/24/16 21:15 Nasal Cannula 2.00 06/24/16 21:06 94 Nasal Cannula 2.00 06/24/16 20:07 71 06/24/16 20:00 97.5 67 18 168/75 95 06/24/16 16:00 97.4 68 20 136/74 92 06/24/16 12:00 97.1 70 21 150/82 93 06/24/16 11:38 94 Nasal Cannula 2.00 I/O 06/24/16 06/24/16 06/24/16 06/25/16 06/25/16 06/25/16 07:00 15:00 23:00 07:00 15:00 23:00 Intake Total 120 ml 480 ml Output Total 800 ml 950 ml 450 ml Balance -680 ml 480 ml -950 ml -450 ml Intake Oral 120 ml 480 ml Output Urine Total 800 ml 950 ml 450 ml # Voids 3 # Bowel Movements 0 0 Result Diagram: 06/24/16 0629 06/25/16 0614 ROS General: Fatigue, Weakness (improving), Other (10 point ROS done positives noted) Pulmonary: Cough (occasional), SOB (exertional), Other (eval possible home O2, check walk test) GI: BM (within the last 24 hours) Physical Exam Physical Exam PHYSICAL EXAMINATION GENERAL: This is a well-developed, well-nourished male who appears to be in no acute distress. Up in chair HEAD: Normocephalic without any lesion or mass noted. Facial features appear symmetric. OROPHARYNGEAL: Oropharynx without erythema or edema. NECK: Supple. No nuchal rigidity or lymphadenopathy. Trachea midline without deviation. CARDIAC: Regular rhythm, regular rate, S1 and S2 are heard. LUNGS: Diminished to auscultation bilaterally bases. Minimal expiratory wheeze , ABDOMEN: Soft, nontender, no organomegaly or masses. Bowel sounds are heard in all four quadrants. No rebound. No guarding. EXTREMITIES: no edema. Pulses equal bilateral. NEUROLOGICAL: Patient mood and affect appropriate. No focal deficit SKIN:Warm and moist Objective Remarks I'm feeling even better today, but hope I can go home with oxygen A/P Assessment and Plan Vital signs reviewed, stable ranges Labs reviewed, will recheck BMP and CBC in the morning Constipation, resolved, patient states he had a bowel movement no problems Sepsis, lactic acidosis resolved PNA. antibiotics, follow cultures, negative so far Leukocytosis improving COPD, improving especially at rest, Pulmonary consult, appreciate input. Chest x-ray still shows some consolidation but patient is breathing better and labs are better Obesity with Sleep apnea -Continue with BIPAP at HS and Oxygen per NC to keep sats >90%, patient passed walk test. Home O2 be in set up with the assistance of case management and PO steroids , duo nebs, every 4 today Looking at possible discharge in the morning per pulmonary Elevated blood glucose, on chronic steroids-improving Hx borderline DM -Accuchecks AC/HS with ISS Heparin for DVT prophylaxis PPI for GI prophylaxis. Home O2 being set up CM consult dc planning, HHC, with oxygen possible DC a.m. Discussed With: Family (patient), Other (Dr. Coe, seen on his behalf) Mariah Davis Jun 25, 2016 10:09 Mariah Davis Jun 25, 2016 10:09 Mariah Davis Jun 25, 2016 10:09
[2016-06-25] MEDS ORDERED: PHARMACY ORDERED LAB ONE (11:45)
[2016-06-25] MEDS: VANCOMYCIN INJ 1,750 MG in SODIUM CHLORID 0.9% 500 ML INJ 500 ML IV SCH (12:42)
[2016-06-26] VITALS: BP 184/94; PULSE 84; RESP 20; TEMP 98.2; O2SAT 94
[2016-06-26] MEDS ORDERED: VANCOMYCIN 1,500 MG/NS 500 ML IV SCH ×2
[2016-06-26] MEDS: RESP: ALBUTEROL 2.5 MG/IPRATROPIUM 0.5 MG NEB (SCH) NEB ×4 (01:34→12:00)
[2016-06-26 04:00] VITALS: BP 155/74; PULSE 83; RESP 20; TEMP 97.6; O2SAT 92
[2016-06-26] MEDS: AZITHROMYCIN INJ 500 MG in SODIUM CHLOR 0.9% 250 ML INJ 250 ML IV SCH (04:15)
[2016-06-26 05:56] VITALS: O2SAT 88
[2016-06-26] MEDS: INSULIN ASPART SUPPLEMENTAL SCALE SQ SCH ×2 (06:49→11:44)
[2016-06-26 08:23] VITALS: BP 150/81; PULSE 82; RESP 20; TEMP 97.6; O2SAT 93
[2016-06-26] MEDS: AZTREONAM INJ 2,000 MG in SODIUM CHLORIDE 0.9% INJ 100 ML IV SCH ×3 (08:27)
[2016-06-26] MEDS: MESALAMINE HD 800 MG DELAYED RELEASE TAB PO SCH (08:28)
[2016-06-26] MEDS: NYSTATIN SUSP 500,000 U/5 ML CUP SWISH-SWAL SCH (08:28)
[2016-06-26] MEDS: CALCIUM/VITAMIN D 250 MG/125 U TAB PO SCH (08:28)
[2016-06-26] MEDS: FOLIC ACID 1 MG TAB PO SCH (08:28)
[2016-06-26] MEDS: PANTOPRAZOLE SOD 40 MG DELAYED RELEASE TAB PO SCH (08:28)
[2016-06-26] MEDS: predniSONE 20 MG TAB PO SCH (08:28)
[2016-06-26] MEDS: ASPIRIN EC 81 MG TABEC PO SCH (08:28)
[2016-06-26] MEDS: HEPARIN SODIUM - SQ 10,000 UNITS/ML VIAL SQ SCH (08:29)
[2016-06-26] MEDS: BUDESONIDE-FORMOTEROL 80/4.5 MCG INHALER INH SCH (08:29)
[2016-06-26] MEDS: SODIUM CHLORIDE 0.9% FLUSH 10 ML FLUSH IV FLUSH SCH (08:29)
[2016-06-26] MEDS: POLYETHYLENE GLYCOL 17 GM PKG PO SCH (08:30)
[2016-06-26 08:48] LABS: HEMATOCRIT 43.9 % (39.0-51.0); MEAN CORPUSCULAR HEMOGLOBIN 29.4 PG (27.0-34.0); PLATELET COUNT 316 TH/MM3 (150-450); RED BLOOD COUNT 4.94 MIL/MM3 (4.50-5.90); RED CELL DISTRIBUTION WIDTH 14.6 % (11.6-17.2); REVIEW FLAG FINAL; WHITE BLOOD COUNT 12.8 TH/MM3 (4.0-11.0)
[2016-06-26 08:53] VITALS: O2SAT 92
[2016-06-26 09:15] LABS: BICARBONATE 22.2 MEQ/L (21.0-32.0)
[2016-06-26] MEDS ORDERED: PRED20 PO (09:57)
[2016-06-26] MEDS ORDERED: LEVA750T PO (09:58)
[2016-06-26] MEDS ORDERED: DOXY100C PO (09:58)
--- NOTE | 2016-06-26 10:05 | HHI.PR ---
Subjective Remarks Awake alert, cheerful No acute sob Patient states he does feel better Up in chair Objective Objective Results - Vital Signs Date Time Temp Pulse Resp B/P Pulse Ox O2 Delivery O2 Flow Rate FiO2 06/26/16 08:53 92 21 06/26/16 08:23 97.6 82 20 150/81 93 06/26/16 05:56 88 06/26/16 04:00 97.6 83 20 155/74 92 06/26/16 00:00 98.2 84 20 184/94 94 06/25/16 20:16 90 21 06/25/16 20:13 Nasal Cannula 2.00 06/25/16 20:00 97.2 92 20 155/84 93 06/25/16 16:00 96.6 67 18 143/79 92 06/25/16 12:00 97.5 92 18 139/81 93 I/O 06/25/16 06/25/16 06/25/16 06/26/16 06/26/16 06/26/16 07:00 15:00 23:00 07:00 15:00 23:00 Intake Total 960 ml 1440 ml 120 ml Output Total 450 ml Balance -450 ml 960 ml 1440 ml 120 ml Intake Oral 960 ml 540 ml 120 ml IV Total 900 ml Output Urine Total 450 ml # Voids 3 4 2 # Bowel Movements 0 1 0 0 Result Diagram: 06/26/1681906/26/1620 ROS General: Other (10 point ROS done systems essentially negative or unremarkable) Physical Exam Physical Exam PHYSICAL EXAMINATION GENERAL: This is a well-developed, well-nourished male who appears to be in no acute distress. He is alert and awake, HEAD: Normocephalic without any lesion or mass noted. Facial features appear symmetric. OROPHARYNGEAL: Oropharynx without erythema or edema. NECK: Supple. No nuchal rigidity or lymphadenopathy. Trachea midline without deviation. CARDIAC: Regular rhythm, regular rate, S1 and S2 are heard. Murmur []; no gallops or rubs. LUNGS: Diminished mild to auscultation bilaterally. no wheeze, no rhonchi ABDOMEN: Soft, nontender, no organomegaly or masses. Bowel sounds are heard in all four quadrants. No rebound. No guarding. EXTREMITIES: [] edema. Pulses equal bilateral. [] cyanosis. NEUROLOGICAL: Patient mood and affect appropriate. No focal deficit SKIN:Warm and moist Objective Remarks I'm ready to go home A/P Assessment and Plan Vital signs reviewed, stable ranges Constipation, resolved, patient states he had a bowel movement no problems Sepsis, lactic acidosis resolved PNA. antibiotics, follow cultures, negative so far Leukocytosis improving COPD, stable Pulmonary consult, appreciate input. Chest x-ray still shows some consolidation but patient is breathing better and labs are better Obesity with Sleep apnea -Continue with BIPAP at HS and Oxygen per NC to keep sats >90%, patient passed walk test. No O2 at home for now Elevated blood glucose, on chronic steroids-improving Hx borderline DM -Accuchecks AC/HS with ISS Heparin for DVT prophylaxis PPI for GI prophylaxis. CM consult dc planning, C, planned for today. Patient is ready and is medically stable Discussed with Dr. lambert, seen on his behalf discussed with patient Discussed With: Family (patient), Other (Dr. Coe, seen on his behalf) Mariah Davis Jun 26, 2016 10:05
[2016-06-26] MEDS ORDERED: LEVOFLOXACIN 750 MG TAB PO SCH (11:00)
[2016-06-26] MEDS ORDERED: DOXYCYCLINE HYCLATE 100 MG CAP PO SCH (21:00)
[2016-06-27] MEDS ORDERED: PHARMACY ORDERED LAB ONE (23:45)
--- NOTE | 2016-07-16 15:16 | HHI.DS ---
Discharge Summary Admission Date Jun 22, 2016 at 00:24 Discharge Date: Jun 26, 2016 Admitting Diagnosis pneumonia. Hypoxemia. (1) Sepsis (2) Pneumonia (3) Hypoxemia (4) Hx of ulcerative colitis (5) Leukocytosis (6) Sleep apnea (7) COPD (chronic obstructive pulmonary disease) (8) Elevated random blood glucose level (9) Current chronic use of systemic steroids Imaging Last Impressions Chest X-Ray 06/24/16 0000 Signed Impressions: Service Date/Time: Friday, June 24, 2016 12:55 - CONCLUSION: Patchy areas of increased density seen bilaterally being more prominent on the left. These could represent focal areas of consolidation and pneumonia. River Villalobos MD CT Angiography 06/22/16 0050 Signed Impressions: Service Date/Time: June 01:33 - CONCLUSION: Normal examination except for extensive atelectasis both lung bases left greater than right. Darron Gunter MD Hospital Course This is an 81-year-old male with PMHx of COPD, RA, ulcerative colitis, recurrent sinusitis, HTN. Presented to ED with complains generalized malaise and weakness, and nausea vomiting. Patient stated that the symptoms started yesterday morning, sudden. Patient was seen by personal physician this morning and found to have elevated blood sugar. Patient denied any history of diabetes but stated he is borderline. EMS was called to the scene. Patient's O2 saturation was found to be 87% at room air. Patient was given O2 4 L via NC. Doesn't use oxygen at home. On CPAP for sleep apnea. Was found with fever 101, EMS gave 1500 cc IVF. No cough, no sputum, no cp, no sob. Stated he has chronic nasal congestion. No urinary symptoms, no diarrhea. Was evaluated in the ED, labs were done. Was febrile 101, tachycardic HR 116, BP 177/75. Sats 87 on RA. CBC remarkable for leukocytosis, WBC 22.7. Pt on chronic steroids for RA. Lactic acid 2.1. BMP remarkable for elevated blood glucose 152. CXR showed poss. PNA. CTA negative for PE. Antibiotics were started after cultures were obtained. Influenza negative. Overnight, he was put on BIPAP. Sats 89% on oxygen at 5L/NC. Has hx of COPD, not on oxygen at home. Followed up as OP with Dr. Singh. Pt. admitted was for further evaluation and treatment: (1) Sepsis (2) Pneumonia (3) Hypoxemia (4) Hx of ulcerative colitis (5) Leukocytosis (6) Sleep apnea (7) COPD (chronic obstructive pulmonary disease) (8) Elevated random blood glucose level (9) Current chronic use of systemic steroids During the course of the hospitalization, the following took place: 81 year old male admitted with weakness, N/V, found with hypoxia, lactic acidosis, febrile. CXR with PNA JANEE Sepsis, lactic acidosis, PNA. . -continue IVF, lactic acid now normal -continue empiric antibiotics, follow cultures, negative so far -followed CBC, noted with leukocytosis, poss. sec. steroid use. -WBC did improve COPD, hypoxia. Improved, sats 93% on 3L/NC, may need oxygen at home Sleep apnea -Continue with BIPAP at HS and Oxygen per NC to keep sats >90% -changed to PO steroids -Duonebs -Pulmonary input appreciated -Walk test done, did not need oxygen Elevated blood glucose, on chronic steroids-improving Hx borderline DM -HgbA1C 6.3 -Accuchecks AC/HS with ISS Thrush -Nystatin 5 ml S/S PO QID Hx RA on steroids, stable -on PO steroids Hx Ulcerative colitis, stable -continue Asacol Heparin for DVT prophylaxis PPI for GI prophylaxis. Improving, no fever, WBC trending down. May need oxygen at home was transferred out of ICU CM consult dc planning, [facility], condition improved, stable for discharge Pt Condition on Discharge: Stable Discharge Disposition: Discharge Home Discharge Instructions DIET: Follow Instructions for: Heart Healthy Diet Fluid Restrictions: none Activities you can perform: Regular-No Restrictions Follow up Referrals: PCP Follow-up - 1 Week Pulmonology - 3 Weeks New Medications: Doxycycline Hyclate (Doxycycline Hyclate) 100 Mg Cap 100 MG PO BID pnemonia #14 CAP Levofloxacin (Levaquin) 750 Mg Tab 750 MG PO DAILY pneumonia #7 TAB Prednisone (Prednisone) 20 Mg Tab 20 MG PO BID COPD Days 10 TAB Continued Medications: Aspirin (Aspirin) 81 Mg Tabdr 81 MG PO DAILY TAB Beclomethasone Nasal (Qnasl Nasal) 80 Mcg/Act Aero 2 SPRAY NASAL DAILY To each nostril. Allergies #1 Ref 0 INHALER Budesonide-Formoterol Inh (Symbicort Inh) 80-4.5 Mcg/Act Aero 2 PUFF INH DAILY Asthma Management #1 Ref 0 INHALER Calcium Carbonate-Cholecalciferol (Calcium + D3) 600-200 Mg-Unit Tab 1 TAB PO DAILY TAB Folic Acid (Folic Acid) 800 Mcg Cap 800 MCG PO DAILY CAP Losartan (Losartan) 50 Mg Tab 50 MG PO DAILY Blood Pressure Management #[address] Ref [address] (Asacol HD) 800 Mg Tab 800 MG PO TID Swallow whole. Take on an empty stomach. Ulcerative colitis Ref 0 TAB Methylprednisolone (Medrol) 4 Mg Tab 4 MG PO Mon, Wed, Fri Ref 0 TAB Multiple Vitamin (Multiple Vitamin) 1 Tab 1 TAB PO DAILY Nutritional Supplement Ref 0 TAB Pantoprazole (Protonix) 40 Mg Tab 40 MG PO DAILY Reflux #30 Ref 0 TAB Mirela Valencia [facility] July 16, 2016 15:16
== END 2016-06-26 13:24 | disposition home or self-care (01) | DRG 871 ==
LOC: NEPE 22:33 → NEDA 06-22 00:24 → HIMW 06-22 01:55 → N04B 06-23 16:39
PROVIDERS: ADMIT Specialist; ATTEND Specialist
DX: A41.9 Sepsis, unspecified organism (principal); J18.9 Pneumonia, unspecified organism; E87.2 Acidosis; J44.0 Chronic obstructive pulmonary disease with (acute) lower respiratory infection; J44.1 Chronic obstructive pulmonary disease with (acute) exacerbation; R09.02 Hypoxemia; G47.30 Sleep apnea, unspecified; E66.9 Obesity, unspecified; Z68.28 Body mass index [BMI] 28.0-28.9, adult; K59.00 Constipation, unspecified; K21.9 Gastro-esophageal reflux disease without esophagitis; I10 Essential (primary) hypertension; K44.9 Diaphragmatic hernia without obstruction or gangrene; Z79.52 Long term (current) use of systemic steroids
CPT/HCPCS: 36600; 71010; 71020; 71275; 76937; 80048; 80053; 80202; 81001; 82550; 82565; 82805; 82948; 83036; 83605; 83880; 84443; 84484; 85025; 85027; 85379; 85610; 85730; 87040; 87641; 87804; 93005; 93306; 94002; 94150; 94620; 94640; 94664; 96365; J0456; J1644; J1815; J1885; J2920; J3370; J7030; J7040; J7050; J7512; Q9967

== ENCOUNTER → 2017-01-02 | Day surgery (SDC) | payer MEDICARE ==
[~2017-01-02] MED LIST changes: -ASPI1TAB69 PO; +ASPI81TA5 PO; -BECL80AE NASAL; +BUPIVACAINE HCL PF 0.5% 30 ML VIAL ONE; +GABA100C4 PO; +LYSI1000 PO; +PERC2.5T PO; +PRED5TAB PO; +PROPOFOL 200 MG/20 ML AMP IV ONE; +TRIAMCINOLONE ACETONIDE 40 MG/ML VIAL I-ARTICULR ONE; +VENTAER INH; +VITATAB11 PO; +methylPREDNISolone ACETATE 40 MG/ML VIAL I-ARTICULR ONE
--- NOTE | 2017-01-02 12:21 | M6 ---
cc: HORTENCIA TSE M.D. DATE: 01/02/2017 DATE OF : 1935 PROCEDURE Fluoroscopically guided injection bilateral sacroiliac joints. History and physical was completed and signed. Consent was signed. Procedure site was marked. Medications were listed and reconciled. Pain score was recorded. Allergies were noted. Time out was taken. Fluoroscopy time was recorded where applicable. Sedation was administered or directed by Dr. Tse. The patient was given oxygen. The patient was monitored by a registered nurse. Total procedure time was greater than 15 minutes. PROCEDURE: IV was started, blood pressure cuff, pulse oximeter and EKG were applied. The patient was placed in the prone position on a Demetris table sedated with small amounts of propofol titrated to effect. Vital signs were monitored and then remained stable throughout the procedure. Sacral area was prepped with alcohol and 10% Betadine solution and draped with sterile drapes. Fluoroscopy was used shooting from medial to lateral to clearly visualize the posterior joint line of the bilateral sacroiliac joints. Separate sterile 5-inch 22-gauge spinal needles were advanced into each joint. There was negative aspiration for blood or any other type of fluid at each location the patient was given 2 mL of 0.5% Marcaine 20 mg of Depo-Medrol and 20 mg of Kenalog. Following the procedure the patient was taken to the recovery room with stable vital signs neurologically intact he will be evaluated immediately and with followup to determine if he has a subjective decrease in his usual pain and a corresponding objective increase in his functional capabilities. W. MD TARYN Chase/pramod /9:47 AM /12:16 PM
== END | disposition home or self-care (01) ==
LOC: PHSDC 08:11
PROVIDERS: ATTEND Pain Medicine Interventional Pain Medicine
DX: M54.5 Low back pain (principal)
CPT/HCPCS: 99152; G0260; J1030; J3301; 27096